=== PATIENT | female | born 1990 | race Caucasian/White ===

== ENCOUNTER → 2016-05-17 | Outpatient (CLI) | payer OTHER ==
--- NOTE | 2016-05-17 14:08 | US ---
EXAMINATION TYPE: US OB <= 14 wk fetus DATE OF EXAM: 05/17/2016 1:49 PM COMPARISON: Previous ultrasound done at [facility] CLINICAL HISTORY: Z36 Previous Abn US. Follow up to previous abnormal ultrasound, 2, para 1 EXAM PERFORMED: Transabdominal (TA) EXAM MEASUREMENTS: GESTATIONAL AGE / DATING Physician Established: (7 weeks/3 days) EDC: 12/31/2016 Dates by LMP: Unknown Dates by First Scan: No previous done here Dates by Current Scan for: (7 weeks/5 days) EDC: 12/29/2016 MATERNAL ANATOMY Uterus: 10.7 x 4.2 x 6.7cm, anteverted Right Ovary: 3.5 x 2.2 x 2.2cm Left Ovary: 2.8 x 1.9 x 1.5cm Post CDS / Adnexa: wnl Presence of free fluid: no Presence of corpus luteal cyst: not seen at this time Presence of subchorionic bleed: no GESTATION / SURVEY CRL: 1.4cm (7 weeks/5 days) Yolk Sac (normal less than 6mm): 4.2mm Heart Rate: 169 bpm Rhythm: Normal IUP: Viable IUP Date of LMP: Unknown Beta HcG (if available): Not available at time of exam IMPRESSION: 1. Viable single IUP measuring 7 weeks 5 days with a heart rate of 169bpm and an estimated delivery d ate of 12/29/2016.
== END | disposition home or self-care (01) ==
LOC: RADUSWWP 13:28
PROVIDERS: ATTEND Obstetrics & Gynecology
DX: Z36 Encounter for antenatal screening of mother (principal); Z3A.01 Less than 8 weeks gestation of pregnancy
CPT/HCPCS: 76801

== ENCOUNTER 2016-05-28 07:52 | Emergency (ER) | payer OTHER ==
--- NOTE | 2016-05-28 09:07 | ED ---
Female Urogenital HPI - General Chief complaint: Vaginal Bleeding Stated complaint: bleeding, 9 weeks Preg Time Seen by Provider: 05/28/16 08:20 Source: patient Mode of arrival: ambulatory Limitations: no limitations - History of Present Illness Initial comments: 26-year-old female patient presents to emergency department today for complaints of vaginal bleeding. Patient is around 9 weeks . Patient is . Patient states that she woke up this morning with some dried blood in her underwear. When she used the restroom this morning she did have some pink on the toilet paper. Denies any abdominal pain, cramping, pain, current vaginal bleeding, or vaginal discharge. Patient denies any urinary frequency, urgency, or dysuria. Patient denies any diarrhea, but states she has been constipated over the last 2 days. Patient denies any headaches, fever, chills, dizziness, weakness, chest pain, or shortness of breath. Patient has established care with Dr. Babb. Patient has had ultrasound confirming intrauterine . She denies any palpitations with the up until this point. Patient did receive Rhogram with her last and states the only complication was an early delivery by four weeks. Last Menstrual Period: 12/24/15 - Related Data Home Medications Medication Instructions Recorded Confirmed Thyroid, Pork [[place] Thyroid] 30 mg PO DAILY 05/28/16 05/28/16 Allergies Allergy/AdvReac Type Severity Reaction Status Date / Time No Known Allergies Allergy Verified 05/28/16 08:07 Review of Systems ROS Statement: Those systems with pertinent positive or pertinent negative responses have been documented in the HPI. ROS Other: All systems not noted in ROS Statement are negative. Past Medical History Past Medical History: No Reported History History of Any Multi-Drug Resistant Organisms: None Reported Past Surgical History: Adenoidectomy, Ear Surgery, Tonsillectomy Past Psychological History: No Psychological Hx Reported Smoking Status: Never smoker Past Alcohol Use History: None Reported Past Drug Use History: None Reported General Exam Limitations: no limitations General appearance: alert, in no apparent distress Head exam: Present: atraumatic, normocephalic Eye exam: Present: normal appearance, PERRL Pupils: Present: normal accommodation ENT exam: Present: normal exam, normal oropharynx, mucous membranes moist, normal external ear exam. Absent: mucous membranes dry Neck exam: Present: normal inspection Respiratory exam: Present: normal lung sounds bilaterally. Absent: respiratory distress, wheezes, rales, rhonchi, stridor Cardiovascular Exam: Present: regular rate, normal rhythm, normal heart sounds. Absent: irregular rhythm, systolic murmur, diastolic murmur, rubs, gallop, clicks GI/Abdominal exam: Present: soft, normal bowel sounds. Absent: distended, tenderness, guarding, rebound, rigid, organomegaly, mass External exam: Present: normal external exam. Absent: erythema, swelling, lesions, lacerations, ecchymosis Speculum exam: Present: vaginal discharge (thin, white/yellow), vaginal bleeding (Trace amount). Absent: erythema, cervical discharge, foreign body, tissue, laceration By manual exam: Present: normal by manual exam, uterine enlargement. Absent: cervical motion tenderness, adnexal tenderness, adnexal mass Extremities exam: Present: normal inspection Back exam: Present: normal inspection. Absent: CVA tenderness (R), CVA tenderness (L) Neurological exam: Present: alert, oriented X3, CN II-XII intact Psychiatric exam: Present: normal affect, normal mood Skin exam: Present: warm, dry, intact Course Vital Signs 05/28/16 08:05 Temperature 98.0 F Pulse Rate 83 Respiratory 20 Rate Blood Pressure 151/74 O2 Sat by Pulse 100 Oximetry Medical Decision Making - Medical Decision Making 26-year-old female presents emergency department for vaginal bleeding and . Patient's ultrasound shows no acute abnormality. Patient was given program as she is A- blood type. Patient will follow-up with [facility]. Return parameters were discussed. - Lab Data Result diagrams: 05/28/16 09:15 05/28/16 09:15 Lab Results 05/28/16 05/28/16 05/28/16 Range/Units 09:15 09:15 09:15 WBC 7.0 (3.8-10.6) k/uL RBC 4.64 (3.80-5.40) m/uL Hgb 13.6 (11.4-16.0) gm/dL Hct 40.9 (34.0-46.0) % MCV 88.1 (80.0-100.0) fL MCH 29.3 (25.0-35.0) pg MCHC 33.2 (31.0-37.0) g/dL RDW 12.5 (11.5-15.5) % Plt Count 204 (150-450) k/uL Neutrophils % 82 % Lymphocytes % 14 % Monocytes % 3 % Eosinophils % 1 % Basophils % 0 % Neutrophils # 5.7 (1.3-7.7) k/uL Lymphocytes # 1.0 (1.0-4.8) k/uL Monocytes # 0.2 (0-1.0) k/uL Eosinophils # 0.0 (0-0.7) k/uL Basophils # 0.0 (0-0.2) k/uL Sodium 139 (137-145) mmol/L Potassium 4.3 (3.5-5.1) mmol/L Chloride 106 (98-107) mmol/L Carbon Dioxide 23 (22-30) mmol/L Anion Gap 10 mmol/L BUN 8 (7-17) mg/dL Creatinine 0.60 (0.52-1.04) mg/dL Est GFR (MDRD) Af Amer >60 (>60 ml/min/1.73 sqM) Est GFR (MDRD) Non-Af >60 (>60 ml/min/1.73 sqM) Glucose 93 (74-99) mg/dL Calcium 9.5 (8.4-10.2) mg/dL TSH 2.050 (0.465-4.680) mIU/L Free T4 0.84 (0.78-2.19) ng/dL Urine Color Light Yellow Urine Appearance Clear (Clear) Urine pH 7.0 (5.0-8.0) Ur Specific Hendricks 1.004 (1.001-1.035) Urine Protein Negative (Negative) Urine Glucose (UA) Negative (Negative) Urine Ketones Negative (Negative) Urine Blood Moderate H (Negative) Urine Nitrate Negative (Negative) Urine Bilirubin Negative (Negative) Urine Urobilinogen <2.0 (<2.0) mg/dL Ur Leukocyte Esterase Moderate H (Negative) Urine RBC 3 (0-5) /hpf Urine WBC 5 (0-5) /hpf Ur Squamous Epith Cells 4 (0-4) /hpf Hep Bs Antigen Negative Rubella IgG Antibody IU/mL Blood Type Blood Type Recheck Antibody Screen Spec Expiration Date 05/28/16 05/28/16 Range/Units 09:15 09:15 WBC (3.8-10.6) k/uL RBC (3.80-5.40) m/uL Hgb (11.4-16.0) gm/dL Hct (34.0-46.0) % MCV (80.0-100.0) fL MCH (25.0-35.0) pg MCHC (31.0-37.0) g/dL RDW (11.5-15.5) % Plt Count (150-450) k/uL Neutrophils % % Lymphocytes % % Monocytes % % Eosinophils % % Basophils % % Neutrophils # (1.3-7.7) k/uL Lymphocytes # (1.0-4.8) k/uL Monocytes # (0-1.0) k/uL Eosinophils # (0-0.7) k/uL Basophils # (0-0.2) k/uL Sodium (137-145) mmol/L Potassium (3.5-5.1) mmol/L Chloride (98-107) mmol/L Carbon Dioxide (22-30) mmol/L Anion Gap mmol/L BUN (7-17) mg/dL Creatinine (0.52-1.04) mg/dL Est GFR (MDRD) Af Amer (>60 ml/min/1.73 sqM) Est GFR (MDRD) Non-Af (>60 ml/min/1.73 sqM) Glucose (74-99) mg/dL Calcium (8.4-10.2) mg/dL TSH (0.465-4.680) mIU/L Free T4 (0.78-2.19) ng/dL Urine Color Urine Appearance (Clear) Urine pH (5.0-8.0) Ur Specific Hendricks (1.001-1.035) Urine Protein (Negative) Urine Glucose (UA) (Negative) Urine Ketones (Negative) Urine Blood (Negative) Urine Nitrate (Negative) Urine Bilirubin (Negative) Urine Urobilinogen (<2.0) mg/dL Ur Leukocyte Esterase (Negative) Urine RBC (0-5) /hpf Urine WBC (0-5) /hpf Ur Squamous Epith Cells (0-4) /hpf Hep Bs Antigen Rubella IgG Antibody >120.0 IU/mL Blood Type A Negative Blood Type Recheck No Antibody Screen NEGATIVE Spec Expiration Date 05/31/2016 - 2314 Disposition Clinical Impression: Bleeding in early Disposition: HOME SELF-CARE Condition: Stable Instructions: (ED) Additional Instructions: Please return to the Emergency Department if symptoms worsen or any other concerns. Time of Disposition: 11:08
[2016-05-28 09:32] LABS: Basophils % (A) 0 %; CH 30.4; CHCM 34.6; Eosinophils % (A) 1 %; HCT 40.9 % (34.0-46.0); HDW 2.26; HGB 13.6 gm/dL (11.4-16.0); Luc # (Auto) 0.07; Luc % (Auto) 1; Lymphocytes % (A) 14 %; MCH 29.3 pg (25.0-35.0); MCHC 33.2 g/dL (31.0-37.0); MCV 88.1 fL (80.0-100.0); Mean Platelet Volume 7.9; Monocytes # (A) 0.2 k/uL (0-1.0); Monocytes % (A) 3 %; Neutrophils # (A) 5.7 k/uL (1.3-7.7); Neutrophils % (A) 82 %; RBC 4.64 m/uL (3.80-5.40); RDW 12.5 % (11.5-15.5); WBC (Perox) 7.23
[2016-05-28 09:44] LABS: Appearance,Urine Clear (Clear); Bilirubin,Urine Negative (Negative); Glucose,Urine (UA) Negative (Negative); Ketones,Urine Negative (Negative); Leukocyte Esterase,Urine Moderate (Negative); Nitrite,Urine Negative (Negative); Particle Count 5359; Protein,Urine Negative (Negative); RBC,Urine 3 /hpf (0-5); Specific Gravity,Urine 1.004 (1.001-1.035); Squamous Epithelial Cell,Urine 4 /hpf (0-4); UA Billing (MACRO vs. MICRO) MICRO; Urobilinogen,Urine <2.0 mg/dL (<2.0); WBC,Urine 5 /hpf (0-5)
--- NOTE | 2016-05-28 09:54 | US ---
EXAMINATION TYPE: US OB <= 14 wk fetus DATE OF EXAM: 05/28/2016 9:46 AM COMPARISON: In pacs CLINICAL HISTORY: Pain. Spotting x 1 day, 2, para 1 EXAM PERFORMED: Transabdominal (TA) EXAM MEASUREMENTS: GESTATIONAL AGE / DATING Physician Established: (9 weeks/2 days) EDC: 12/29/2016 Dates by LMP: Unknown Dates by First Scan: (9 weeks/2 days) EDC: 12/29/2016 Dates by Current Scan for: (9 weeks/1 days) EDC: 12/30/2016 MATERNAL ANATOMY Uterus: 7.9 x 7.0 x 7.1cm, anteverted Right Ovary: 4.0 x 2.5 x 2.9cm Left Ovary: 3.9 x 2.6 x 2.2cm Post CDS / Adnexa: wnl Presence of free fluid: no Presence of corpus luteal cyst: not seen at this time Presence of subchorionic bleed: no GESTATION / SURVEY CRL: 2.4cm (9 weeks/1 days) Yolk Sac (normal less than 6mm): 4.6mm Heart Rate: 186 bpm Rhythm: Normal IUP: Viable IUP Date of LMP: Unknown Beta HcG (if available): Not available at time of exam IMPRESSION: 1. Viable single IUP measuring 9 weeks 1 day with a heart rate of 186bpm and an estimated delivery da te of 12/30/2016.
[2016-05-28 10:03] LABS: Anion Gap 10 mmol/L; Blood Urea Nitrogen 8 mg/dL (7-17); Calcium 9.5 mg/dL (8.4-10.2); Carbon Dioxide 23 mmol/L (22-30); Chloride 106 mmol/L (98-107); Glucose 93 mg/dL (74-99); Non-African American GFR(MDRD) >60 (>60 ml/min/1.73 sqM); Potassium 4.3 mmol/L (3.5-5.1); Sodium 139 mmol/L (137-145)
[2016-05-28 10:34] LABS: Hepatitis B Surface Ag Index 0.06
[2016-05-28 11:14] LABS: HCG,Quantitative Serum 96236.3 mIU/mL
[2016-05-28] MEDS ORDERED: Rhogam IMMUNE GLOBULIN 1,500 UNIT/1 ML IM ONE (11:37)
[2016-05-28 11:46] VITALS: BP 118/65; PULSE 71; RESP 16; TEMP 97.7
== END 2016-05-28 11:57 | disposition home or self-care (01) ==
LOC: EC 07:52
DX: O46.91 Antepartum hemorrhage, unspecified, first trimester (principal); O26.893 Other specified pregnancy related conditions, third trimester; Z3A.09 9 weeks gestation of pregnancy; Z67.11 Type A blood, Rh negative
CPT/HCPCS: 99284; 96372; 36415; 86900; 86901; 86762; 84439; 80048; 84443; 85025; 86850; 87340; 81001; 84702; 86780; 87086; 76801; J2791

== ENCOUNTER → 2019-12-04 | Outpatient (CLI) | payer OTHER ==
--- NOTE | 2019-12-04 12:54 | MR ---
MR brain without contrast HISTORY: Near syncope Multiplanar multisequence imaging through the brain. Correlation CT brain 11/27/2018 There is no restricted diffusion. There is no hemorrhage or hydrocephalus. There is mucoperiosteal th ickening within the maxillary sinuses, ethmoid air cells. The orbits show a symmetric appearance. The re are normal vascular flow voids. Mild inflammatory change present in the mastoid air cells. There are scattered hyperintensities within the deep white matter on inversion recovery T2-weighted s equences to include subcortical white matter at the convexity bilaterally, approximately 10-15 lesion s are present. Largest lesion measures approximately 8 mm in the periventricular white matter adjacen t to the frontal horn of the left lateral ventricle axial image #18, and in the right frontal lobe sa me image 5 mm. IMPRESSION: Nonspecific white matter demyelination, correlate for possible multiple sclerosis, vascul itis, hypertension, migraine headaches, Lyme disease. Sinus disease.
--- NOTE | 2019-12-04 13:32 | US ---
EXAMINATION TYPE: US carotid duplex BILAT DATE OF EXAM: 12/04/2019 COMPARISON: CT head; MR Brain today CLINICAL HISTORY: R55 NEAR SYNCOPE. Multiple syncopal episodes and some episodes with tachycardia per patient; history of thyroid disease EXAM MEASUREMENTS: RIGHT: Peak Systolic Velocity (PSV) cm/sec ----- Right CCA: 110.6 ----- Right ICA: 105.6 ----- Right ECA: 120.8 ICA/CCA ratio: 1.0 RIGHT: End Diastole cm/sec ----- Right CCA: 27.3 ----- Right ICA: 32.3 ----- Right ECA: 15.9 LEFT: Peak Systolic Velocity (PSV) cm/sec ----- Left CCA: 93.0 ----- Left ICA: 104.3 ----- Left ECA: 99.3 ICA/CCA ratio: 1.1 LEFT: End Diastole cm/sec ----- Left CCA: 29.8 ----- Left ICA: 29.8 ----- Left ECA: 18.4 VERTEBRALS (direction of flow): Right Vertebral: Antegrade Left Vertebral: Antegrade Rhythm: Normal Some mild intimal wall thickening is noted at bilateral carotid bifurcation, but PSV is wnl bilateral ly. Grayscale, color Doppler, spectral Doppler imaging obtained. Waveform analysis does not show sign ificant stenosis. Incidental note made of a low suspicion right thyroid nodule IMPRESSION: No hemodynamic significant stenosis of the proximal internal carotid arteries by Doppler criteria, an indirect measurement of carotid stenosis Criteria for Assigning % of Stenosis / Diameter reduction (Estimation based on the indirect measurements of the internal carotid artery velocities (ICA PSV). 1. Normal (no stenosis)=ICA PSV < 125 cm/s: ratio < 2.0: ICA EDV<40 cm/s. 2. Less than 50% stenosis=ICA PSV < 125 cm/s: ratio < 2.0: ICA EDV<40 cm/s. 3. 50 to 69% stenosis=ICA PSV of 125 to 230 cm/s: ration 2.0 ? 4.0: ICA EDV 40-100 cm/s. 4. Greater than 70% stenosis to near occlusion= ICA PSV > 230 cm/s: ratio > 4.0: ICA EDV > 100 cm/s. 5. Near occlusion= ICA PSV velocities may be low or undetectable: variable ratio and ICA EDV. 6. Total occlusion=unable to detect flow.
== END | disposition home or self-care (01) ==
LOC: RADMRIMAIN 10:21
PROVIDERS: ATTEND Psychiatry & Neurology Neurology
DX: G37.9 Demyelinating disease of central nervous system, unspecified (principal); R55 Syncope and collapse
CPT/HCPCS: 70551; 93880

== ENCOUNTER 2020-05-23 09:48 | Day surgery (SDC) | payer OTHER ==
[2020-05-20 13:58] VITALS: BMI 38.0
[~2020-05-23 09:48] MED LIST: LACTATED RINGERS 1,000 ML IV SCH
[2020-05-23 10:09] VITALS: RESP 16; TEMP 97.5
[2020-05-23] MEDS ORDERED: LIDOCAINE 1% (10MG/ML) FOR IV START INTRADERMA ONE (10:13)
[2020-05-23] MEDS ORDERED: LIDOCAINE 1% INJ 10MG/ML (20 ML MDV) ONE (11:19)
[2020-05-23] MEDS ORDERED: PROPOFOL 10 MG/ML 20 ML VIAL IV ONE (11:19)
--- NOTE | 2020-05-23 11:29 | P.PCN ---
Date of Procedure: 05/23/20 Procedure(s) Performed: BRIEF HISTORY: Patient is a 30-year-old, pleasant, white female scheduled for an upper endoscopy as a part of evaluation of GERD and intermittent dysphagia/globus sensation in her the throat.. PROCEDURE PERFORMED: Esophagogastroduodenoscopy with biopsy. PREOPERATIVE DIAGNOSIS: Dysphagia/globus sensation. IV sedation per anesthesia. PROCEDURE: After informed consent was obtained, the patient was brought into the endoscopy unit. IV sedation was administered by Anesthesia under continuous monitoring. Initially the Olympus GIF-140 video endoscope was inserted into the mouth. Esophagus intubated without any difficulty. It was gradually advanced into the stomach and duodenum and carefully examined. The bulb and the second part of the duodenum appeared normal. The scope at this time was withdrawn to the stomach, adequately insufflated with air, and upon careful examination, mucosa of the antrum, and mild gastritis and biopsies were done from this area. The body, cardia and the fundus appeared normal. The scope was then withdrawn into the esophagus. The GE junction was located at 39 cm from the incisors. The esophagus appeared normal. There were no erosions or ulcerations seen, no evidence of esophageal stricture. Biopsies were done from the distal esophagus and the patient tolerated the procedure well. IMPRESSION: 1. Mild antral gastritis. 2. Normal-appearing esophagus with no evidence of esophagitis or esophageal stricture. RECOMMENDATIONS: The findings of this examination were discussed with the patient as well as a family. She was advised to follow with the biopsy results. She will continue with omeprazole 20 mg daily and she'll be seen in office in 4 weeks..
[2020-05-23 11:53] VITALS: BP 131/79; PULSE 73
== END 2020-05-23 12:14 | disposition home or self-care (01) ==
LOC: ORWHC2ENDO 09:48
PROVIDERS: ATTEND Internal Medicine Gastroenterology
DX: K31.9 Disease of stomach and duodenum, unspecified (principal); R13.10 Dysphagia, unspecified
CPT/HCPCS: 88305; 43239; J2001; J2704

== ENCOUNTER → 2021-06-30 | Outpatient (CLI) | payer OTHER ==
[2021-06-30 18:32] LABS: Total Protein,CSF 37 mg/dL (12-60)
[2021-06-30 18:44] LABS: Appearance,CSF Clear; CSF Tube Volume 3
[2021-06-30 18:45] LABS: Nucleated Cells, CSF 0 u/L (0-5); Red Blood Cell,CSF 0 u/L (0-10)
[2021-07-01 11:55] LABS: IgG - CSF 1.6 mg/dL (0.0 - 3.4); Immunoglobulin G 874 mg/dL (700 - 1600)
== END | disposition home or self-care (01) ==
LOC: LABWHC1 09:04
PROVIDERS: ATTEND Nurse Practitioner Acute Care
DX: H53.149 Visual discomfort, unspecified (principal); R42 Dizziness and giddiness; R90.89 Other abnormal findings on diagnostic imaging of central nervous system
CPT/HCPCS: 36415; 82040; 82042; 82784; 83873; 83916; 84157; 87801; 89050

== ENCOUNTER → 2022-06-28 | Outpatient (CLI) | payer OTHER ==
[2022-06-28 23:50] LABS: % Iron Saturation 8.45 (12.00-45.00); ALT 16 U/L (8-44); AST 11 U/L (13-35); African American GFR (CKD) 82.9 (60.0-200.0); Albumin 4.3 g/dL (3.8-4.9); Albumin/Globulin Ratio 1.88 (1.60-3.17); Alkaline Phosphatase 57 U/L (41-126); BUN/Creat Ratio 15.87 Ratio (12.00-20.00); Blood Urea Nitrogen 16.5 mg/dL (9.0-27.0); Calcium 9.4 mg/dL (8.7-10.3); Carbon Dioxide 26.7 mmol/L (20.0-27.5); Chloride 103 mmol/L (96-109); Globulin 2.3 g/dL (1.6-3.3); Glucose 106 mg/dL (70-110); Iron 37 ug/dL (50-170); Non-African American GFR(CKD) 71.5 (60.0-200.0); Potassium 4.1 mmol/L (3.5-5.5); Rheumatoid Factor, Qnt <10 IU/mL (0-15); Sodium 142 mmol/L (135-145); Total Bilirubin <0.15 mg/dL (0.30-1.20); Total Iron Binding Capacity 442 ug/dL (228-460); Total Protein 6.5 g/dL (6.2-8.2)
== END | disposition home or self-care (01) ==
LOC: LABWHC1 14:46
PROVIDERS: ATTEND Nurse Practitioner Acute Care
DX: E55.9 Vitamin D deficiency, unspecified (principal); E53.9 Vitamin B deficiency, unspecified; M19.90 Unspecified osteoarthritis, unspecified site; R20.2 Paresthesia of skin; H53.8 Other visual disturbances; G43.909 Migraine, unspecified, not intractable, without status migrainosus; R42 Dizziness and giddiness
CPT/HCPCS: 36415; 80053; 82306; 82607; 83540; 83550; 84207; 85025; 85652; 86038; 86039; 86140; 86431

== ENCOUNTER → 2022-07-06 | Outpatient (CLI) | payer OTHER ==
[2022-07-06 12:52] LABS: Basophils % (A) 1 %; Eosinophils # (A) 0.6 k/uL (0-0.7); Eosinophils % (A) 8 %; HCT 42.2 % (34.0-46.0); HGB 13.7 gm/dL (11.4-16.0); Lymphocytes % (A) 27 %; MCH 28.6 pg (25.0-35.0); MCHC 32.4 g/dL (31.0-37.0); MCV 88.1 fL (80.0-100.0); Mean Platelet Volume 7.7; Monocytes # (A) 0.3 k/uL (0-1.0); Monocytes % (A) 5 %; Neutrophils # (A) 4.2 k/uL (1.3-7.7); Neutrophils % (A) 58 %; Platelet Count 253 k/uL (150-450); RBC 4.79 m/uL (3.80-5.40); RDW 12.5 % (11.5-15.5); WBC 7.2 k/uL (3.8-10.6)
[2022-07-06 13:57] LABS: Erythrocyte Sedimentation Rate 7 mm/hr (0-20)
== END | disposition home or self-care (01) ==
LOC: LABWHC1 12:27
PROVIDERS: ATTEND Nurse Practitioner Acute Care
DX: E55.9 Vitamin D deficiency, unspecified (principal); G43.909 Migraine, unspecified, not intractable, without status migrainosus; E53.9 Vitamin B deficiency, unspecified; M19.90 Unspecified osteoarthritis, unspecified site; H53.8 Other visual disturbances; R20.2 Paresthesia of skin; R42 Dizziness and giddiness
CPT/HCPCS: 36415; 85025; 85652